=== PATIENT | male | born 1975 | race Caucasian/White ===

== ENCOUNTER 2018-08-28 11:56 | Emergency (ER) | payer MEDICAID ==
[~2018-08-28] VITALS: Ht 170.2 cm; Wt 125.4 kg
[2018-08-28 12:08] VITALS: BP 135/70
--- NOTE | 2018-08-28 12:15 | NUR ---
Patient ambulated to bed 4. RN evaluating patient at bedside.
--- NOTE | 2018-08-28 12:16 | NUR ---
C/O HEADACHE X 3 DAYS, COUGH& SORE THROAT X TODAY. TOOK TYLENOL AT 8 AM TODAY. DENIES N/V/D OR TRAUMA. MED HX: DENIES . DENIES N/V/D; SKIN IS PINK/WARM/DRY; AAOX4 WITH EVEN AND STEADY GAIT; LUNGS CLEAR BL; HR EVEN AND REGULAR; PT DENIES ANY FEVER, CP, SOB, AT THIS TIME; PATIENT STATES PAIN OF 10/10 AT THIS TIME; VSS; PATIENT POSITIONED FOR COMFORT; HOB ELEVATED; BEDRAILS UP X2; BED DOWN. ER MD MADE AWARE OF PT STATUS.
--- NOTE | 2018-08-28 12:17 | NUR ---
Dr. Griffith evaluating patient at bedside.
[2018-08-28] MEDS ORDERED: KETOROLAC 60 MG/2 ML VIAL IM ONE (12:20)
[2018-08-28 13:00] VITALS: BP 132/69
--- NOTE | 2018-08-28 13:00 | NUR ---
Patient discharged with v/s stable. Written and verbal after care instructions given and explained. Patient alert, oriented and verbalized understanding of instructions. Ambulatory with steady gait. All questions addressed prior to discharge. ID band removed. Patient advised to follow up with PMD. Rx of IBU given. Patient educated on indication of medication including possible reaction and side effects. Opportunity to ask questions provided and answered.
== END 2018-08-28 13:00 | disposition home or self-care (01) ==
LOC: MED 11:56
DX: G44.209 Tension-type headache, unspecified, not intractable (principal)
CPT/HCPCS: 96372; 99283; J1885